=== PATIENT | male | born 1995 | race Caucasian/White ===

== ENCOUNTER 2019-04-14 22:00 | Emergency (ER) | payer SELFPAY ==
[~2019-04-14] VITALS: Ht 170.2 cm; Wt 59.0 kg
[2019-04-15 00:19] LABS: CHLORIDE 107 mEq/L (98-107)
[2019-04-15 00:20] LABS: BASOPHILS % 0.6 % (0.0-2.0); EOSINOPHILS % 3.7 % (0.0-5.0); HEMATOCRIT. 42.4 % (42.0-52.0); HEMOGLOBIN. 14.5 g/dL (14.0-18.0); LYMPHOCYTES % 35.5 % (20.0-50.0); MEAN CORPUSCULAR HEMOGLOBIN 30.7 pg (28.0-32.0); MEAN CORPUSCULAR VOLUME 89.8 fL (80.0-94.0); MEAN PLATELET VOLUME 9.7 fl (7.4-10.4); MONOCYTES % 6.8 % (2.0-8.0); NEUTROPHILS % 53.4 % (40.0-76.0); PLATELET 169 x1000/uL (130-400); RED BLOOD CELL COUNT 4.72 mill/uL (4.7-6.1); RED CELL DISTRIBUTION WIDTH 14.1 % (11.6-14.6)
[2019-04-15 00:23] LABS: ETHANOL BLOOD 90 mg/dL
[2019-04-16] MEDS: OLANZAPINE 10MG TABLET PO SCH (12:15)
[2019-04-16] MEDS ORDERED: CITALOPRAM HYDROBROMIDE 10MG TABLET PO ONE (15:15)
[2019-04-16] MEDS ORDERED: GABAPENTIN 300MG CAPSULE PO ONE (15:15)
[2019-04-16] MEDS ORDERED: LORAZEPAM 1MG TABLET PO ONE (15:15)
[2019-04-16 17:10] LABS: *AMPHETAMINES SCREEN URINE PRESUMTIVE POSITIVE (NEGATIVE); *BARBITURATES SCREEN URINE NEGATIVE (NEGATIVE); *BENZODIAZEPINES SCREEN URINE PRESUMTIVE POSITIVE (NEGATIVE)
[2019-04-16 17:11] LABS: *COCAINE SCREEN URINE PRESUMTIVE POSITIVE (NEGATIVE); CANNABINOID URINE SCREEN PRESUMTIVE POSITIVE (NEGATIVE); METHADONE URINE SCREEN NEGATIVE (NEGATIVE); OPIATES URINE SCREEN NEGATIVE (NEGATIVE); PHENCYCLIDINE URINE SCREEN NEGATIVE (NEGATIVE)
[2019-04-17] MEDS: OLANZAPINE 10MG TABLET PO SCH (10:00)
[2019-04-17] MEDS: LORAZEPAM 1MG TABLET PO ONE ×2 (10:21→10:45)
[2019-04-17] MEDS ORDERED: GABAPENTIN 300MG CAPSULE PO SCH (16:00)
[2019-04-17] MEDS ORDERED: LORAZEPAM 1MG TABLET PO NR (16:00)
[2019-04-17] MEDS ORDERED: CITALOPRAM HYDROBROMIDE 10MG TABLET PO NR (16:00)
[2019-04-18 06:34] VITALS: BP 110/60
[2019-04-18] MEDS ORDERED: LORAZEPAM 1MG TABLET PO ONE ×2 (12:45→15:00)
== END 2019-04-18 16:00 | disposition home or self-care (01) ==
LOC: ER 22:00
DX: S50.812A Abrasion of left forearm, initial encounter (principal); R45.851 Suicidal ideations; F32.9 Major depressive disorder, single episode, unspecified; I10 Essential (primary) hypertension; Z59.0 Homelessness; X58.XXXA Exposure to other specified factors, initial encounter; Y93.89 Activity, other specified; Y92.89 Other specified places as the place of occurrence of the external cause; Y99.8 Other external cause status
CPT/HCPCS: 36415; 80053; 80307; 80320; 80329; 85025; 93005; 99284; Z7610; G0480